=== PATIENT | female | born 1995 | race Caucasian/White ===

== ENCOUNTER 2022-10-03 05:51 | Emergency (ER) | payer OTHER, SELFPAY ==
[2022-10-03 05:58] VITALS: BMI 19.3
[2022-10-03 06:10] VITALS: BP 127/91; PULSE 81; RESP 17; TEMP 36.4; O2SAT 93
--- NOTE | 2022-10-03 06:25 | PC.NURSE ---
Patient is under polysubstance/etoh influence, ambulates with two assist at this time, labs pending, med rec completed/pending provider's approval, patient is waiting provider at this time, will continue to monitor.
[2022-10-03 06:50] LABS: COVID-19 Test Negative (Negative); IDNOW Serial# BCCEAD1C
--- NOTE | 2022-10-03 07:59 | PC.NURSE ---
PT SLEEPING. AWOKEN FOR LAB DRAW.
[2022-10-03 08:12] LABS: MANUAL DIFF FLAG NO
--- NOTE | 2022-10-03 08:16 | ED.PSYCH ---
HPI - Psych General Chief Complaint: ETOH/Substance Use <CHRIS Tamayo - Last Filed: 10/03/22 17:55> Stated Complaint: crisis <CHRIS Tamayo - Last Filed: 10/03/22 17:55> Time Seen by Provider: 10/03/22 07:58 <CHRIS Tamayo - Last Filed: 10/03/22 17:55> Source: patient and EMS <CHRIS Tamayo - Last Filed: 10/03/22 17:55> Mode of arrival: EMS <CHRIS Tamayo - Last Filed: 10/03/22 17:55> Limitations: no limitations <CHRIS Tamayo - Last Filed: 10/03/22 17:55> History of Present Illness HPI Narrative: 27 yo female presents to the ER for evaluation of alcohol intoxication and suicidal thoughts. She reports drinking 1 galloon of vodka per day. She states she has been having troubles with her fiance. She just got [facility] and did not stay sober. She denies any illicit drug use besides marijuana. When asked about suidical thoughts she states she would never kill herself. She admits to drinking heavily and having withdrawal seizures in the past. She reports nausea and feeling like she is already starting to go through alcohol withdrawal. She reports her last drink was 11 hours ago. <CHRIS Tamayo - Last Filed: 10/03/22 17:55> MD complaint: suicidal ideation, feels depressed and alcohol abuse <CHRIS Tamayo - Last Filed: 10/03/22 17:55> Onset (ago): unknown <CHRIS Tamayo - Last Filed: 10/03/22 17:55> History of same: Yes <CHRIS Tamayo - Last Filed: 10/03/22 17:55> Relieving factors: none <CHRIS Tamayo - Last Filed: 10/03/22 17:55> Exacerbating factors: none <CHRIS Tamayo Last Filed: 10/03/22 17:55> Context: recent alcohol abuse and significant life stressor <CHRIS Tamayo Last Filed: 10/03/22 17:55> Associated psychiatric symptoms: depression <CHRIS Tamayo - Last Filed: 10/03/22 17:55> Associated symptoms: headache, nausea, vomiting and insomnia <CHRIS Tamayo - Last Filed: 10/03/22 17:55> Treatments prior to arrival: placed on mental health hold <CHRIS Tamayo - Last Filed: 10/03/22 17:55> Related Data Home Medications: Home Medications Medication Instructions Recorded Confirmed albuterol sulfate 90 mcg/actuation 2 puff inhalation Q4H PRN wheezing 10/03/22 10/03/22 aerosol inhaler (Ventolin HFA) chlordiazepoxide HCl 25 mg capsule 4 cap PO BEDTIME PRN Alcohol 10/03/22 10/03/22 Withdrawal hydroxyzine pamoate 50 mg capsule 1 - 2 cap PO BEDTIME PRN insomnia 10/03/22 10/03/22 levothyroxine 100 mcg capsule 1 cap PO DAILY 10/03/22 10/03/22 (Tirosint) <CHRIS Tamayo - Last Filed: 10/03/22 17:55> Allergies/Adverse Reactions: Allergies Allergy/AdvReac Type Severity Reaction Status Date / Time cat dander Allergy Severe Rash Verified 10/03/22 06:05 dog dander [dogs] Allergy Severe Rash Verified 10/03/22 06:04 tree nut AdvReac Severe Anaphylaxis Verified 10/03/22 06:29 shellfish derived AdvReac Rash Verified 10/03/22 06:03 <CHRIS Tamayo - Last Filed: 10/03/22 17:55> Review of Systems Review of Systems: Yes all other systems are reviewed and are negative <CHRIS Tamayo - Last Filed: 10/03/22 17:55> PMFSH Past Medical History Medical History: Medical History (Updated 10/03/22 @ 17:55 by CHRIS Tamayo) Asthma Hypothyroidism <CHRIS Tamayo - Last Filed: 10/03/22 17:55> Social History Social History: Social History Alcohol intake: current Alcohol intake frequency: 3 or more drinks per day Alcohol type: hard liquor Smoked in Last 30 Days: No Use of substances other than those prescribed or required for medical reasons: Yes Substance Use Type: Marijuana Substance Use Frequency: Chronic Longstanding Last Used Substance: Just Prior to Admission Advance Directives: No Advance Directives Information Provided: No Patient : No <CHRIS Tamayo - Last Filed: 10/03/22 17:55> Physical Exam Vital Signs: Vital Signs: Last Vital Signs Temp 97.2 F 10/03/22 21:05 Pulse 110 H 10/03/22 21:05 Resp 20 10/03/22 21:05 BP 143/103 H 10/03/22 21:05 Pulse Ox 97 10/03/22 21:05 O2 Del Method 10/03/22 21:05 BMI result Body Mass Index 19.3 <CHRIS Tamayo - Last Filed: 10/03/22 17:55> Vital Signs: Last Vital Signs Temp 97.2 F 10/03/22 21:05 Pulse 110 H 10/03/22 21:05 Resp 20 10/03/22 21:05 BP 143/103 H 10/03/22 21:05 Pulse Ox 97 10/03/22 21:05 O2 Del Method 10/03/22 21:05 BMI result Body Mass Index 19.3 <CHRIS Solano - Last Filed: 10/03/22 23:12> Appearance: Disheveled, poorly kempt, awoken to voice Eyes: Pupils equal, round and reactive to light. ENT: Pharynx normal. Neck: Normal inspection. Neck supple. CVS: Normal heart rate and rhythm. Pulses normal. Respiratory: No respiratory distress. Breath sounds normal. Abdomen: Soft and nontender. +BS x4 Skin: Skin warm and dry. Normal skin color. Normal skin turgor. No rashes. Extremities: No lower extremity edema. Neuro: Oriented X 3. No motor deficit. No sensory deficit. CN II-XII, slurred speech at times. Depressed mood. Restless intermittently. poor insight and judgment. <CHRIS Tamayo - Last Filed: 10/03/22 17:55> Course Course Course Narrative: 27-year-old female with history of ETOH abuse/dependence who drinks 1 gallon of vodka per day, history of withdrawal seizures in the past who recently got out of [facility] presents to the ER intoxicated and reporting SI. Will get ETOH level, lab work up for medical clearance and have her seen by CARE team once clinically sober. <CHRIS Tamayo - Last Filed: 10/03/22 17:55> Reevaluation(s) Reevaluation #1: ETOH 390. patient denying SI - I was probably just wasted and talking smack. I would never kill myself. She reports severe withdrawal from alcohol - actively vomiting, p.rmartínez Smart ordered. Will monitor CIWA scores. It is going to take her several hours 2 days to start going through withdrawal given her extremely high alcohol level. CIWA 9 this afternoon <CHRIS Tamayo - Last Filed: 10/03/22 17:55> Reevaluation #2: Nurse reporting CIWA score of 39 at 17:00 today. Patient's scores very subjective with moderately severe for several subjective complaints. Will treat with Librium and clonidine and reassess. An if no improvement or worsening symptoms will require admission to the hospital for alcohol withdrawal. <CHRIS Tamayo - Last Filed: 10/03/22 17:55> Reevaluation #3: [id number]-- CIWA =0 now. patient has 7 days worth of Librium room waiting for her at the pharmacy for pickling grad[facility]. Patient was evaluated by CARE team and denies SI at this time, reports issues are secondary to ETOH and would like detox. Patient would like to be discharged home to try to get into detox tomorrow outpatient <CHRIS Solano - Last Filed: 10/03/22 23:12> Medications Administered Generic Name Dose Route Start Last Admin Trade Name Freq PRN Reason Stop Dose Admin Levothyroxine Sodium 100 mcg 10/03/22 10:45 10/03/22 11:11 Levothyroxine Sodium 100 Mcg Tablet PO 100 mcg DAILY FAROOQ Administration Discontinued Medications Generic Name Dose Route Start Last Admin Trade Name Freq PRN Reason Stop Dose Admin Chlordiazepoxide HCl 75 mg 10/03/22 17:39 10/03/22 17:47 Chlordiazepoxide Hcl 25 Mg Capsule PO 10/03/22 17:40 75 mg ONCE ONE Administration Chlordiazepoxide HCl 25 mg 10/03/22 23:04 10/03/22 23:07 Chlordiazepoxide Hcl 25 Mg Capsule PO 10/03/22 23:05 25 mg ONCE ONE Administration Clonidine HCl 0.1 mg 10/03/22 17:52 10/03/22 18:20 Clonidine Hcl 0.1 Mg Tablet PO 10/03/22 17:53 0.1 mg ONCE ONE Administration Protocol Lorazepam 0.5 mg 10/03/22 08:40 10/03/22 08:50 Lorazepam 0.5 Mg Tablet PO 10/03/22 08:41 0.5 mg ONCE ONE Administration Ondansetron HCl 4 mg 10/03/22 08:40 10/03/22 08:50 Ondansetron Odt 4 Mg Tab.Rapdis TRANSLINGU 10/03/22 08:41 4 mg ONCE ONE Administration Ondansetron HCl 4 mg 10/03/22 14:44 10/03/22 17:48 Ondansetron Odt 4 Mg Tab.Rapdis TRANSLINGU 10/03/22 14:45 4 mg ONCE ONE Administration <CHRIS Tamayo - Last Filed: 10/03/22 17:55> Medications Administered Generic Name Dose Route Start Last Admin Trade Name Freq PRN Reason Stop Dose Admin Levothyroxine Sodium 100 mcg 10/03/22 10:45 10/03/22 11:11 Levothyroxine Sodium 100 Mcg Tablet PO 100 mcg DAILY FAROOQ Administration Discontinued Medications Generic Name Dose Route Start Last Admin Trade Name Freq PRN Reason Stop Dose Admin Chlordiazepoxide HCl 75 mg 10/03/22 17:39 10/03/22 17:47 Chlordiazepoxide Hcl 25 Mg Capsule PO 10/03/22 17:40 75 mg ONCE ONE Administration Chlordiazepoxide HCl 25 mg 10/03/22 23:04 10/03/22 23:07 Chlordiazepoxide Hcl 25 Mg Capsule PO 10/03/22 23:05 25 mg ONCE ONE Administration Clonidine HCl 0.1 mg 10/03/22 17:52 10/03/22 18:20 Clonidine Hcl 0.1 Mg Tablet PO 10/03/22 17:53 0.1 mg ONCE ONE Administration Protocol Lorazepam 0.5 mg 10/03/22 08:40 10/03/22 08:50 Lorazepam 0.5 Mg Tablet PO 10/03/22 08:41 0.5 mg ONCE ONE Administration Ondansetron HCl 4 mg 10/03/22 08:40 10/03/22 08:50 Ondansetron Odt 4 Mg Tab.Rapdis TRANSLINGU 10/03/22 08:41 4 mg ONCE ONE Administration Ondansetron HCl 4 mg 10/03/22 14:44 10/03/22 17:48 Ondansetron Odt 4 Mg Tab.Antonellamilly KEITHINGU 10/03/22 14:45 4 mg ONCE ONE Administration <CHRIS Solano - Last Filed: 10/03/22 23:12> Medical Decision Making Lab Data Result Diagrams: 10/03/22 08:03 10/03/22 08:03 <CHRIS Tamayo - Last Filed: 10/03/22 17:55> Labs: Lab Results 10/03/22 10/03/22 10/03/22 Range/Units 06:21 08:03 08:03 WBC 5.6 (4.8-10.8) X10*3/uL RBC 4.81 (4.20-5.50) X10*6/uL Hgb 14.2 (12.0-16.0) g/dl Hct 43.1 (37.0-47.0) % MCV 89.6 (80.0-98.0) fL MCH 29.5 (27.0-33.0) pg MCHC 32.9 (31.0-35.0) g/dl RDW 14.3 (11.0-16.0) % Plt Count 251 (160-400) X10*3/uL MPV 9.9 (9.4-12.3) fL Immature Gran % (Auto) 0.2 (0.0-0.4) % Neut % (Auto) 44.4 L (45-73) % Lymph % (Auto) 44.2 H (20-40) % Divide % (Auto) 5.2 (2-11) % Eos % (Auto) 4.7 H (0-4) % Baso % (Auto) 1.3 (0-2) % Lymph # (Auto) 2.5 (1.2-4.9) X10*3/uL Divide # (Auto) 0.3 (0.1-1.2) X10*3/uL Eos # (Auto) 0.3 (0.0-0.4) X10*3/uL Baso # (Auto) 0.1 (0.0-0.2) X10*3/uL Abs Immat Gran (auto) 0.01 (0.00-0.03) X10*3/uL Absolute Neuts (auto) 2.5 (2.0-8.3) x10*3/uL Absolute Nucleated RBC 0.000 (0.0-0.012) X10*3/uL Nucleated RBC % (auto) 0.0 (0.0-0.2) /100WBC Sodium (135-145) mmol/L Potassium (3.3-5.1) mmol/L Chloride (96-108) mmol/L Carbon Dioxide (22-29) mmol/L Anion Gap (12-20) BUN (9-16) mg/dL Creatinine (0.5-1.4) mg/dL Estim Creat Clear Calc Estimated GFR Random Glucose (60-115) mg/dL Calcium (8.4-10.2) mg/dL Magnesium 2.0 (1.6-2.6) mg/dL Total Bilirubin (0.0-1.0) mg/dL AST (5-31) U/L ALT (0-31) U/L Alkaline Phosphatase (39-117) U/L Total Protein (6.5-8.0) g/dL Albumin (3.5-5.0) g/dL Urine Color Urine Appearance Urine pH (5.0-9.0) Ur Specific [place] (1.005-1.025) Urine Protein (Neg-Trace) mg/dL Urine Glucose (UA) (Negative) mg/dL Urine Ketones (Negative) mg/dL Urine Blood (Negative) Urine Nitrite (Negative) Ur Leukocyte Esterase (Negative) Urine Test (NEGATIVE) Urine Opiates Screen (Not Detect) Urine Fentanyl Screen (Not Detect) Ur Barbiturates Screen (Not Detect) Ur Phencyclidine Scrn (Not Detect) Ur Amphetamines Screen (Not Detect) U Benzodiazepines Scrn (Not Detect) Urine Cocaine Screen (Not Detect) U Marijuana (THC) Screen (Not Detect) Ethyl Alcohol 390 H* mg/dL COVID-19 (WOODY) Negative (Negative) COVID-19 Clin Com See Note 10/03/22 10/03/22 10/03/22 Range/Units 08:03 14:06 14:06 WBC (4.8-10.8) X10*3/uL RBC (4.20-5.50) X10*6/uL Hgb (12.0-16.0) g/dl Hct (37.0-47.0) % MCV (80.0-98.0) fL MCH (27.0-33.0) pg MCHC (31.0-35.0) g/dl RDW (11.0-16.0) % Plt Count (160-400) X10*3/uL MPV (9.4-12.3) fL Immature Gran % (Auto) (0.0-0.4) % Neut % (Auto) (45-73) % Lymph % (Auto) (20-40) % Divide % (Auto) (2-11) % Eos % (Auto) (0-4) % Baso % (Auto) (0-2) % Lymph # (Auto) (1.2-4.9) X10*3/uL Divide # (Auto) (0.1-1.2) X10*3/uL Eos # (Auto) (0.0-0.4) X10*3/uL Baso # (Auto) (0.0-0.2) X10*3/uL Abs Immat Gran (auto) (0.00-0.03) X10*3/uL Absolute Neuts (auto) (2.0-8.3) x10*3/uL Absolute Nucleated RBC (0.0-0.012) X10*3/uL Nucleated RBC % (auto) (0.0-0.2) /100WBC Sodium 144 (135-145) mmol/L Potassium 3.8 (3.3-5.1) mmol/L Chloride 107 (96-108) mmol/L Carbon Dioxide 24 (22-29) mmol/L Anion Gap 17 (12-20) BUN 15 (9-16) mg/dL Creatinine 0.69 (0.5-1.4) mg/dL Estim Creat Clear Calc 107.0 Estimated GFR > 60 Random Glucose 86 (60-115) mg/dL Calcium 9.0 (8.4-10.2) mg/dL Magnesium (1.6-2.6) mg/dL Total Bilirubin 0.5 (0.0-1.0) mg/dL AST 50 H (5-31) U/L ALT 25 (0-31) U/L Alkaline Phosphatase 104 (39-117) U/L Total Protein 7.6 (6.5-8.0) g/dL Albumin 4.3 (3.5-5.0) g/dL Urine Color Urine Appearance Urine pH (5.0-9.0) Ur Specific [place] (1.005-1.025) Urine Protein (Neg-Trace) mg/dL Urine Glucose (UA) (Negative) mg/dL Urine Ketones (Negative) mg/dL Urine Blood (Negative) Urine Nitrite (Negative) Ur Leukocyte Esterase (Negative) Urine Test NEGATIVE (NEGATIVE) Urine Opiates Screen Not Detected (Not Detect) Urine Fentanyl Screen Not Detected (Not Detect) Ur Barbiturates Screen POSITIVE H (Not Detect) Ur Phencyclidine Scrn Not Detected (Not Detect) Ur Amphetamines Screen Not Detected (Not Detect) U Benzodiazepines Scrn Not Detected (Not Detect) Urine Cocaine Screen Not Detected (Not Detect) U Marijuana (THC) Screen Not Detected (Not Detect) Ethyl Alcohol mg/dL COVID-19 (WOODY) (Negative) COVID-19 Clin Com 10/03/22 Range/Units 14:06 WBC (4.8-10.8) X10*3/uL RBC (4.20-5.50) X10*6/uL Hgb (12.0-16.0) g/dl Hct (37.0-47.0) % MCV (80.0-98.0) fL MCH (27.0-33.0) pg MCHC (31.0-35.0) g/dl RDW (11.0-16.0) % Plt Count (160-400) X10*3/uL MPV (9.4-12.3) fL Immature Gran % (Auto) (0.0-0.4) % Neut % (Auto) (45-73) % Lymph % (Auto) (20-40) % Divide % (Auto) (2-11) % Eos % (Auto) (0-4) % Baso % (Auto) (0-2) % Lymph # (Auto) (1.2-4.9) X10*3/uL Divide # (Auto) (0.1-1.2) X10*3/uL Eos # (Auto) (0.0-0.4) X10*3/uL Baso # (Auto) (0.0-0.2) X10*3/uL Abs Immat Gran (auto) (0.00-0.03) X10*3/uL Absolute Neuts (auto) (2.0-8.3) x10*3/uL Absolute Nucleated RBC (0.0-0.012) X10*3/uL Nucleated RBC % (auto) (0.0-0.2) /100WBC Sodium (135-145) mmol/L Potassium (3.3-5.1) mmol/L Chloride (96-108) mmol/L Carbon Dioxide (22-29) mmol/L Anion Gap (12-20) BUN (9-16) mg/dL Creatinine (0.5-1.4) mg/dL Estim Creat Clear Calc Estimated GFR Random Glucose (60-115) mg/dL Calcium (8.4-10.2) mg/dL Magnesium (1.6-2.6) mg/dL Total Bilirubin (0.0-1.0) mg/dL AST (5-31) U/L ALT (0-31) U/L Alkaline Phosphatase (39-117) U/L Total Protein (6.5-8.0) g/dL Albumin (3.5-5.0) g/dL Urine Color Yellow Urine Appearance Clear Urine pH 6.0 (5.0-9.0) Ur Specific [place] 1.010 (1.005-1.025) Urine Protein Trace (Neg-Trace) mg/dL Urine Glucose (UA) Negative (Negative) mg/dL Urine Ketones Negative (Negative) mg/dL Urine Blood Negative (Negative) Urine Nitrite Negative (Negative) Ur Leukocyte Esterase Negative (Negative) Urine Test (NEGATIVE) Urine Opiates Screen (Not Detect) Urine Fentanyl Screen (Not Detect) Ur Barbiturates Screen (Not Detect) Ur Phencyclidine Scrn (Not Detect) Ur Amphetamines Screen (Not Detect) U Benzodiazepines Scrn (Not Detect) Urine Cocaine Screen (Not Detect) U Marijuana (THC) Screen (Not Detect) Ethyl Alcohol mg/dL COVID-19 (WOODY) (Negative) COVID-19 Clin Com <CHRIS Tamayo - Last Filed: 10/03/22 17:55> Lab Results 10/03/22 10/03/22 10/03/22 Range/Units 06:21 08:03 08:03 WBC 5.6 (4.8-10.8) X10*3/uL RBC 4.81 (4.20-5.50) X10*6/uL Hgb 14.2 (12.0-16.0) g/dl Hct 43.1 (37.0-47.0) % MCV 89.6 (80.0-98.0) fL MCH 29.5 (27.0-33.0) pg MCHC 32.9 (31.0-35.0) g/dl RDW 14.3 (11.0-16.0) % Plt Count 251 (160-400) X10*3/uL MPV 9.9 (9.4-12.3) fL Immature Gran % (Auto) 0.2 (0.0-0.4) % Neut % (Auto) 44.4 L (45-73) % Lymph % (Auto) 44.2 H (20-40) % Divide % (Auto) 5.2 (2-11) % Eos % (Auto) 4.7 H (0-4) % Baso % (Auto) 1.3 (0-2) % Lymph # (Auto) 2.5 (1.2-4.9) X10*3/uL Divide # (Auto) 0.3 (0.1-1.2) X10*3/uL Eos # (Auto) 0.3 (0.0-0.4) X10*3/uL Baso # (Auto) 0.1 (0.0-0.2) X10*3/uL Abs Immat Gran (auto) 0.01 (0.00-0.03) X10*3/uL Absolute Neuts (auto) 2.5 (2.0-8.3) x10*3/uL Absolute Nucleated RBC 0.000 (0.0-0.012) X10*3/uL Nucleated RBC % (auto) 0.0 (0.0-0.2) /100WBC Sodium (135-145) mmol/L Potassium (3.3-5.1) mmol/L Chloride (96-108) mmol/L Carbon Dioxide (22-29) mmol/L Anion Gap (12-20) BUN (9-16) mg/dL Creatinine (0.5-1.4) mg/dL Estim Creat Clear Calc Estimated GFR Random Glucose (60-115) mg/dL Calcium (8.4-10.2) mg/dL Magnesium 2.0 (1.6-2.6) mg/dL Total Bilirubin (0.0-1.0) mg/dL AST (5-31) U/L ALT (0-31) U/L Alkaline Phosphatase (39-117) U/L Total Protein (6.5-8.0) g/dL Albumin (3.5-5.0) g/dL Urine Color Urine Appearance Urine pH (5.0-9.0) Ur Specific [place] (1.005-1.025) Urine Protein (Neg-Trace) mg/dL Urine Glucose (UA) (Negative) mg/dL Urine Ketones (Negative) mg/dL Urine Blood (Negative) Urine Nitrite (Negative) Ur Leukocyte Esterase (Negative) Urine Test (NEGATIVE) Urine Opiates Screen (Not Detect) Urine Fentanyl Screen (Not Detect) Ur Barbiturates Screen (Not Detect) Ur Phencyclidine Scrn (Not Detect) Ur Amphetamines Screen (Not Detect) U Benzodiazepines Scrn (Not Detect) Urine Cocaine Screen (Not Detect) U Marijuana (THC) Screen (Not Detect) Ethyl Alcohol 390 H* mg/dL COVID-19 (WOODY) Negative (Negative) COVID-19 Clin Com See Note 10/03/22 10/03/22 10/03/22 Range/Units 08:03 14:06 14:06 WBC (4.8-10.8) X10*3/uL RBC (4.20-5.50) X10*6/uL Hgb (12.0-16.0) g/dl Hct (37.0-47.0) % MCV (80.0-98.0) fL MCH (27.0-33.0) pg MCHC (31.0-35.0) g/dl RDW (11.0-16.0) % Plt Count (160-400) X10*3/uL MPV (9.4-12.3) fL Immature Gran % (Auto) (0.0-0.4) % Neut % (Auto) (45-73) % Lymph % (Auto) (20-40) % Divide % (Auto) (2-11) % Eos % (Auto) (0-4) % Baso % (Auto) (0-2) % Lymph # (Auto) (1.2-4.9) X10*3/uL Divide # (Auto) (0.1-1.2) X10*3/uL Eos # (Auto) (0.0-0.4) X10*3/uL Baso # (Auto) (0.0-0.2) X10*3/uL Abs Immat Gran (auto) (0.00-0.03) X10*3/uL Absolute Neuts (auto) (2.0-8.3) x10*3/uL Absolute Nucleated RBC (0.0-0.012) X10*3/uL Nucleated RBC % (auto) (0.0-0.2) /100WBC Sodium 144 (135-145) mmol/L Potassium 3.8 (3.3-5.1) mmol/L Chloride 107 (96-108) mmol/L Carbon Dioxide 24 (22-29) mmol/L Anion Gap 17 (12-20) BUN 15 (9-16) mg/dL Creatinine 0.69 (0.5-1.4) mg/dL Estim Creat Clear Calc 107.0 Estimated GFR > 60 Random Glucose 86 (60-115) mg/dL Calcium 9.0 (8.4-10.2) mg/dL Magnesium (1.6-2.6) mg/dL Total Bilirubin 0.5 (0.0-1.0) mg/dL AST 50 H (5-31) U/L ALT 25 (0-31) U/L Alkaline Phosphatase 104 (39-117) U/L Total Protein 7.6 (6.5-8.0) g/dL Albumin 4.3 (3.5-5.0) g/dL Urine Color Urine Appearance Urine pH (5.0-9.0) Ur Specific [place] (1.005-1.025) Urine Protein (Neg-Trace) mg/dL Urine Glucose (UA) (Negative) mg/dL Urine Ketones (Negative) mg/dL Urine Blood (Negative) Urine Nitrite (Negative) Ur Leukocyte Esterase (Negative) Urine Test NEGATIVE (NEGATIVE) Urine Opiates Screen Not Detected (Not Detect) Urine Fentanyl Screen Not Detected (Not Detect) Ur Barbiturates Screen POSITIVE H (Not Detect) Ur Phencyclidine Scrn Not Detected (Not Detect) Ur Amphetamines Screen Not Detected (Not Detect) U Benzodiazepines Scrn Not Detected (Not Detect) Urine Cocaine Screen Not Detected (Not Detect) U Marijuana (THC) Screen Not Detected (Not Detect) Ethyl Alcohol mg/dL COVID-19 (WOODY) (Negative) COVID-19 Clin Com 10/03/22 Range/Units 14:06 WBC (4.8-10.8) X10*3/uL RBC (4.20-5.50) X10*6/uL Hgb (12.0-16.0) g/dl Hct (37.0-47.0) % MCV (80.0-98.0) fL MCH (27.0-33.0) pg MCHC (31.0-35.0) g/dl RDW (11.0-16.0) % Plt Count (160-400) X10*3/uL MPV (9.4-12.3) fL Immature Gran % (Auto) (0.0-0.4) % Neut % (Auto) (45-73) % Lymph % (Auto) (20-40) % Divide % (Auto) (2-11) % Eos % (Auto) (0-4) % Baso % (Auto) (0-2) % Lymph # (Auto) (1.2-4.9) X10*3/uL Divide # (Auto) (0.1-1.2) X10*3/uL Eos # (Auto) (0.0-0.4) X10*3/uL Baso # (Auto) (0.0-0.2) X10*3/uL Abs Immat Gran (auto) (0.00-0.03) X10*3/uL Absolute Neuts (auto) (2.0-8.3) x10*3/uL Absolute Nucleated RBC (0.0-0.012) X10*3/uL Nucleated RBC % (auto) (0.0-0.2) /100WBC Sodium (135-145) mmol/L Potassium (3.3-5.1) mmol/L Chloride (96-108) mmol/L Carbon Dioxide (22-29) mmol/L Anion Gap (12-20) BUN (9-16) mg/dL Creatinine (0.5-1.4) mg/dL Estim Creat Clear Calc Estimated GFR Random Glucose (60-115) mg/dL Calcium (8.4-10.2) mg/dL Magnesium (1.6-2.6) mg/dL Total Bilirubin (0.0-1.0) mg/dL AST (5-31) U/L ALT (0-31) U/L Alkaline Phosphatase (39-117) U/L Total Protein (6.5-8.0) g/dL Albumin (3.5-5.0) g/dL Urine Color Yellow Urine Appearance Clear Urine pH 6.0 (5.0-9.0) Ur Specific [place] 1.010 (1.005-1.025) Urine Protein Trace (Neg-Trace) mg/dL Urine Glucose (UA) Negative (Negative) mg/dL Urine Ketones Negative (Negative) mg/dL Urine Blood Negative (Negative) Urine Nitrite Negative (Negative) Ur Leukocyte Esterase Negative (Negative) Urine Test (NEGATIVE) Urine Opiates Screen (Not Detect) Urine Fentanyl Screen (Not Detect) Ur Barbiturates Screen (Not Detect) Ur Phencyclidine Scrn (Not Detect) Ur Amphetamines Screen (Not Detect) U Benzodiazepines Scrn (Not Detect) Urine Cocaine Screen (Not Detect) U Marijuana (THC) Screen (Not Detect) Ethyl Alcohol mg/dL COVID-19 (WOODY) (Negative) COVID-19 Clin Com <CHRIS Solano - Last Filed: 10/03/22 23:12> Discharge Plan Discharge Clinical Impression: Alcoholic intoxication <CHRIS Tamayo - Last Filed: 10/03/22 17:55> Patient Disposition: Still a Patient <CHRIS Tamayo - Last Filed: 10/03/22 17:55> Prescriptions: No Action hydroxyzine pamoate 50 mg capsule 1 - 2 cap PO BEDTIME PRN (Reason: insomnia) chlordiazepoxide HCl 25 mg capsule 4 cap PO BEDTIME PRN (Reason: Alcohol Withdrawal) albuterol sulfate [Ventolin HFA] 90 mcg/actuation HFA aerosol inhaler 2 puff INHALATION Q4H PRN (Reason: wheezing) levothyroxine [Tirosint] 100 mcg capsule 1 cap PO DAILY <CHRIS Tamayo - Last Filed: 10/03/22 17:55> Interventions: [place]-Suicide Risk Severity Scale Last Done: 10/03/22 08:33 <CHRIS Tamayo - Last Filed: 10/03/22 17:55>
[2022-10-03 08:17] LABS: Basophils Absolute Auto 0.1 X10*3/uL (0.0-0.2); Basophils Percent Auto 1.3 % (0-2); Eosinophils Absolute Auto 0.3 X10*3/uL (0.0-0.4); Eosinophils Percent Auto 4.7 % (0-4); Hematocrit 43.1 % (37.0-47.0); Hemoglobin 14.2 g/dl (12.0-16.0); Imm Gran Abs Auto 0.01 X10*3/uL (0.00-0.03); Imm Gran Pct Auto 0.2 % (0.0-0.4); Lymphocytes Absolute Auto 2.5 X10*3/uL (1.2-4.9); Lymphocytes Percent Auto 44.2 % (20-40); Mean Corpuscular HGB Conc 32.9 g/dl (31.0-35.0); Mean Corpuscular Hemoglobin 29.5 pg (27.0-33.0); Mean Corpuscular Volume 89.6 fL (80.0-98.0); Mean Platelet Volume 9.9 fL (9.4-12.3); Monocytes Absolute Auto 0.3 X10*3/uL (0.1-1.2); Monocytes Percent Auto 5.2 % (2-11); Neutrophils Absolute Auto 2.5 x10*3/uL (2.0-8.3); Neutrophils Percent Auto 44.4 % (45-73); Platelet Count 251 X10*3/uL (160-400); Red Blood Count 4.81 X10*6/uL (4.20-5.50); Red Cell Distribution Width 14.3 % (11.0-16.0); White Blood Count 5.6 X10*3/uL (4.8-10.8)
[2022-10-03 08:20] VITALS: BP 137/95; PULSE 88; RESP 15; TEMP 36.3; O2SAT 97
[2022-10-03 08:34] LABS: Alanine Aminotransferase 25 U/L (0-31); Albumin Level 4.3 g/dL (3.5-5.0); Alkaline Phosphatase 104 U/L (39-117); Anion Gap 17 (12-20); Aspartate Amino Transferase 50 U/L (5-31); Bilirubin Total 0.5 mg/dL (0.0-1.0); Blood Urea Nitrogen 15 mg/dL (9-16); Carbon Dioxide 24 mmol/L (22-29); Chloride 107 mmol/L (96-108); Estimated Glomerular Filt Rate > 60; Glucose Random 86 mg/dL (60-115); Potassium 3.8 mmol/L (3.3-5.1); Sodium 144 mmol/L (135-145); Total Protein 7.6 g/dL (6.5-8.0)
--- NOTE | 2022-10-03 08:36 | PC.NURSE ---
EXAM BY CHRIS BANDA
[2022-10-03 08:39] LABS: Ethanol 390 mg/dL
[2022-10-03] MEDS: LORazepam 0.5 MG TABLET PO (08:50)
[2022-10-03] MEDS: Ondansetron ODT 4 MG TAB.RAPDIS TRANSLINGU ×2 (08:50→17:48)
--- NOTE | 2022-10-03 09:06 | PC.NURSE ---
PT STATED WITHDRAWING FROM ETOH. LEVEL 390. WENT INTO ROOM TO MEDICATE PT. SNORING.
[2022-10-03] MEDS: Levothyroxine Sodium 100 MCG TABLET PO (11:11)
--- NOTE | 2022-10-03 12:45 | PC.NURSE ---
PT AWAKE, DRINKING WATER. GIVEN MEDS. AWAITING CARE TEAM ARIASAL
[2022-10-03 14:23] LABS: Appearance Urine Clear; Color Urine Yellow; Glucose Urine UA Negative (Negative); Leukocyte Esterase Urine Negative (Negative); Nitrite Urine Negative (Negative); Urine Blood Negative (Negative); Urine Ketones Negative (Negative); Urine Protein Trace mg/dL (Neg-Trace)
[2022-10-03 14:24] LABS: UPreg QC Valid YES; Urine Pregnancy NEGATIVE (NEGATIVE)
[2022-10-03 14:32] LABS: Amphetamine Screen Urine Not Detected (Not Detect); Barbiturates, Urine POSITIVE (Not Detect); Benzodiazepines Screen Urine Not Detected (Not Detect); Cannabinoid Screen Urine Not Detected (Not Detect); Cocaine Screen Urine Not Detected (Not Detect); Fentanyl, urine Not Detected (Not Detect); Opiate Screen Urine Not Detected (Not Detect); Phencyclidine Screen Urine Not Detected (Not Detect)
[2022-10-03 14:38] VITALS: BP 155/107; PULSE 110; RESP 18; TEMP 36.6; O2SAT 97
--- NOTE | 2022-10-03 16:50 | PC.NURSE ---
Addendum entered by Melly Luther RN 10/03/22 16:51: Gave her turkey sandwich and pitcher of ice water. Original Note: Patient requesting food and drink.
--- NOTE | 2022-10-03 17:20 | PC.NURSE ---
Patient requesting something because she is starting to detox. Diandra PEREZ notified. adelso [email or web address]. Awaiting for orders.
[2022-10-03] MEDS: chlordiazePOXIDE HCl 25 MG CAPSULE 75 MG PO (17:47)
[2022-10-03] MEDS: cloNIDine HCL 0.1 MG TABLET PO (18:20)
[2022-10-03 18:29] VITALS: BP 140/104; PULSE 104; RESP 20; TEMP 36.9; O2SAT 96
[2022-10-03 21:05] VITALS: BP 143/103; PULSE 110; RESP 20; TEMP 36.2; O2SAT 97
[2022-10-03] MEDS: chlordiazePOXIDE HCl 25 MG CAPSULE PO (23:07)
== END 2022-10-03 23:22 | disposition home or self-care (01) ==
PROVIDERS: Emergency Provider Emergency Medicine Emergency Medical Services
DX: F10.129 Alcohol abuse with intoxication, unspecified (principal); Y90.8 Blood alcohol level of 240 mg/100 ml or more; Z20.822 Contact with and (suspected) exposure to COVID-19; Z20.828 Contact with and (suspected) exposure to other viral communicable diseases; Z79.899 Other long term (current) drug therapy
CPT/HCPCS: 36415; 80053; 80307; 81003; 81025; 82077; 83735; 85025; 87635; 99284; 99285; S9485

== ENCOUNTER 2023-03-12 16:20 | Emergency (ER) | payer OTHER, SELFPAY ==
[2023-03-12 16:34] VITALS: BP 140/98; BP 145/107; PULSE 123; PULSE 130; RESP 16; O2SAT 96; O2SAT 98; BMI 20.2
[2023-03-12 16:40] VITALS: BP 154/107; PULSE 123; RESP 16; O2SAT 96
[2023-03-12 17:03] VITALS: BP 143/105; PULSE 116; RESP 23; TEMP 36.9; O2SAT 97
--- NOTE | 2023-03-12 17:05 | ED_ITS ---
HPI - General Adult General Chief complaint: Dizziness Stated complaint: dizziness / not feeling well / ETOH Time Seen by Provider: 03/12/23 16:30 Source: patient, RN notes reviewed and old records reviewed Mode of arrival: ambulatory Limitations: no limitations History of Present Illness HPI narrative: 27-year-old female with past medical history significant for eczema, thyroid cancer status post radiation therapy presents for evaluation of ?dizziness and sweating. ? Patient reports that she follows with endocrinology and she had blood work done a few days ago and she was told ?my cortisol levels are too high. ? She states that she was told by her profile mill operator tape control earlier today that she may have tumors on her adrenals. She reports that she began sweating profusely and complaining of dizziness To having ?a few drinks of alcohol with the last drink being around 1:00 p.m.. ? Patient also states that she is on chronic prednisone for the last 6 months due to her eczema Denies any pain currently No other complaints or concerns at this time. Related Data Home Medications Medication Instructions Recorded Confirmed albuterol sulfate 90 mcg/actuation 2 puff inhalation Q4H PRN wheezing 10/03/22 10/03/22 aerosol inhaler (Ventolin HFA) chlordiazepoxide HCl 25 mg capsule 4 cap PO BEDTIME PRN Alcohol 10/03/22 10/03/22 Withdrawal hydroxyzine pamoate 50 mg capsule 1 - 2 cap PO BEDTIME PRN insomnia 10/03/22 10/03/22 levothyroxine 100 mcg capsule 1 cap PO DAILY 10/03/22 10/03/22 (Tirosint) Allergies Allergy/AdvReac Type Severity Reaction Status Date / Time cat dander Allergy Severe Rash Verified 10/03/22 06:05 dog dander [dogs] Allergy Severe Rash Verified 10/03/22 06:04 tree nut AdvReac Severe Anaphylaxis Verified 10/03/22 06:29 shellfish derived AdvReac Rash Verified 10/03/22 06:03 Review of Systems Constitutional: Constitutional: Reports as per HPI, Denies chills, Denies f atigue and Denies fever(s) Cardiovascular: Cardiovascular: Denies chest pain, Reports diaphoresis and Denies dyspnea Respiratory: Respiratory: Denies cough and Denies dyspnea Gastrointestinal: Gastrointestinal: Denies abdominal pain, Denies constipation and Denies vomiting Genitourinary: Genitourinary: Denies dysuria Integumentary/Breasts: Skin/Breast: Reports rash Neurologic: Denies focal weakness Endocrine: Endocrine: Denies fatigue [facility] Past Medical History Medical History (Updated 03/12/23 @ 18:13 by Maicol Billings) Asthma Hypothyroidism Social History Social History Alcohol intake: current Alcohol intake frequency: a few times a week Alcohol type: hard liquor Smoked in Last 30 Days: Yes Use of substances other than those prescribed or required for medical reasons: No Substance Use Type: Marijuana Advance Directives: No Advance Directives Information Provided: No Physical Exam ED Vital Signs: Vital Signs - 24 hr 03/12/23 16:34 03/12/23 16:40 03/12/23 17:03 Temperature 98.4 F Pulse Rate 123 H 123 H 116 H Respiratory Rate 16 16 23 H Blood Pressure 145/107 H 154/107 H 143/105 H Pulse Oximetry 96 96 97 Oxygen Delivery Method Room Air Room Air Room Air BMI result Body Mass Index 20.2 Const General: healthy appearing, comfortable, no acute distress, alert and awake Nutritional Appearance: well nourished Orientation/consciousness: patient oriented x3 HENMT Head: Yes normocephalic and Yes atraumatic Eyes Eyelids: Yes eyelids normal Conjunctivae: conjunctivae normal Sclerae: sclerae normal Corneas: corneas normal Pupils: Equal, round and reactive pupils present EOM: EOMs intact bilaterally Neck Neck: Yes full ROM Resp Effort & Inspection: normal respiratory effort, able to speak in complete sentences and not labored Cardio Rhythm: regular rhythm GI Inspection: No distended Palpation (GI): Soft to palpation, not firm, nontender, no guarding and not rigid Auscultation: normoactive bowel sounds Skin General skin exam: no rashes or lesions noted and elasticity normal Neuro General: patient oriented x3 Cranial nerves: Yes Equal, round and reactive pupils present and Yes Bilaterally intact EOM present Cognition (Neuro): normal cognition Extrem Other: Moving all extremities well without any obvious deformities Course Reevaluation(s) Reevaluation #1: Patient requesting discharge at this time. She is still intoxicated based on her BAL. However she has a sober ride home. Patient requested her IV be removed and reports that she is feeling better. She will be discharged this time to follow-up with her profile mill operator tape control Time: 18:12 Medications Administered Discontinued Medications Generic Name Dose Route Start Last Admin Trade Name Micah PRN Reason Stop Dose Admin Sodium Chloride 1,000 mls @ 999 mls/hr 03/12/23 17:00 03/12/23 17:31 Ns IV 03/12/23 18:00 999 mls/hr .Q1H1M FAROOQ Administration Medical Decision Making Medical Decision Making [facility] Narrative: 27-year-old female with past medical history significant for hypothyroidism, eczema presents for evaluation of dizziness and excessive sweating. She reports that she was recently diagnosed with ?adrenal problems. ? She arrives tachycardic to about 120 and her this is likely related to anxiety. We will check a TSH/T4 level as she is being treated for hypothyroidism due to her previous radiation therapy to her thyroid. Will check other basic labs as well as a random cortisol level. The patient does follow closely with endocrinology and has no significant abdominal pain, nausea vomiting, so we will defer any imaging at this time. Differential Diagnosis Anxiety Alcohol abuse Acute alcohol intoxication Dehydration Whatcom's disease Hyperthyroidism Brinda syndrome Pheochromocytoma Lab Data [facility] Lab Attestation statement: I reviewed the patient's lab results. (There is no leukocytosis or left shift. Patient's alcohol level noted to be elevated to 341 which is likely contributing to her tachycardia and dizziness. Patient's CO2 is slightly low at 21 which may be related to the patient's anxiety and hyperventilating.) 03/12/23 17:15 03/12/23 17:15 Labs: Lab Results 03/12/23 03/12/23 03/12/23 Range/Units 17:15 17:15 17:15 WBC 7.7 (4.8-10.8) X10*3/uL RBC 4.75 (4.20-5.50) X10*6/uL Hgb 14.4 (12.0-16.0) g/dl Hct 42.4 (37.0-47.0) % MCV 89.3 (80.0-98.0) fL MCH 30.3 (27.0-33.0) pg MCHC 34.0 (31.0-35.0) g/dl RDW 13.6 (11.0-16.0) % Plt Count 328 D (160-400) X10*3/uL MPV 10.2 (9.4-12.3) fL Immature Gran % (Auto) 0.3 (0.0-0.4) % Neut % (Auto) 62.1 (45-73) % Lymph % (Auto) 29.1 (20-40) % Noble % (Auto) 3.8 (2-11) % Eos % (Auto) 3.9 (0-4) % Baso % (Auto) 0.8 (0-2) % Lymph # (Auto) 2.3 (1.2-4.9) X10*3/uL Noble # (Auto) 0.3 (0.1-1.2) X10*3/uL Eos # (Auto) 0.3 (0.0-0.4) X10*3/uL Baso # (Auto) 0.1 (0.0-0.2) X10*3/uL Abs Immat Gran (auto) 0.02 (0.00-0.03) X10*3/uL Absolute Neuts (auto) 4.8 (2.0-8.3) x10*3/uL Absolute Nucleated RBC 0.000 (0.0-0.012) X10*3/uL Nucleated RBC % (auto) 0.0 (0.0-0.2) /100WBC Sodium 144 (135-145) mmol/L Potassium 3.7 (3.3-5.1) mmol/L Chloride 111 H (96-108) mmol/L Carbon Dioxide 21 L (22-29) mmol/L Anion Gap 16 (12-20) BUN 21 H (9-16) mg/dL Creatinine 0.73 (0.5-1.4) mg/dL Estim Creat Clear Calc 115.1 Estimated GFR > 60 Random Glucose 113 (60-115) mg/dL Calcium 9.5 (8.4-10.2) mg/dL Total Bilirubin 0.3 (0.0-1.0) mg/dL AST 27 (5-31) U/L ALT 18 (0-31) U/L Alkaline Phosphatase 81 (39-117) U/L Total Protein 7.4 (6.5-8.0) g/dL Albumin 4.4 (3.5-5.0) g/dL Lipase 59 (8-78) U/L TSH (0.32-4.0) uIU/mL Beta HCG, Quant < 2 mIU/mL Random Cortisol ug/dL Ethyl Alcohol mg/dL 03/12/23 03/12/23 03/12/23 Range/Units 17:15 17:15 17:15 WBC (4.8-10.8) X10*3/uL RBC (4.20-5.50) X10*6/uL Hgb (12.0-16.0) g/dl Hct (37.0-47.0) % MCV (80.0-98.0) fL MCH (27.0-33.0) pg MCHC (31.0-35.0) g/dl RDW (11.0-16.0) % Plt Count (160-400) X10*3/uL MPV (9.4-12.3) fL Immature Gran % (Auto) (0.0-0.4) % Neut % (Auto) (45-73) % Lymph % (Auto) (20-40) % Noble % (Auto) (2-11) % Eos % (Auto) (0-4) % Baso % (Auto) (0-2) % Lymph # (Auto) (1.2-4.9) X10*3/uL Noble # (Auto) (0.1-1.2) X10*3/uL Eos # (Auto) (0.0-0.4) X10*3/uL Baso # (Auto) (0.0-0.2) X10*3/uL Abs Immat Gran (auto) (0.00-0.03) X10*3/uL Absolute Neuts (auto) (2.0-8.3) x10*3/uL Absolute Nucleated RBC (0.0-0.012) X10*3/uL Nucleated RBC % (auto) (0.0-0.2) /100WBC Sodium (135-145) mmol/L Potassium (3.3-5.1) mmol/L Chloride (96-108) mmol/L Carbon Dioxide (22-29) mmol/L Anion Gap (12-20) BUN (9-16) mg/dL Creatinine (0.5-1.4) mg/dL Estim Creat Clear Calc Estimated GFR Random Glucose (60-115) mg/dL Calcium (8.4-10.2) mg/dL Total Bilirubin (0.0-1.0) mg/dL AST (5-31) U/L ALT (0-31) U/L Alkaline Phosphatase (39-117) U/L Total Protein (6.5-8.0) g/dL Albumin (3.5-5.0) g/dL Lipase (8-78) U/L TSH 1.29 (0.32-4.0) uIU/mL Beta HCG, Quant mIU/mL Random Cortisol 17.0 ug/dL Ethyl Alcohol 341 H* mg/dL Tests considered The following testing was considered but not selected: CT scan of the abdomen pelvis to evaluate the adrenal gland Discharge Plan Discharge Clinical Impression: Dizziness, Acute alcohol intoxication Patient Disposition: Home, Self-Care Instructions: Dizziness (ED) Additional Instructions: Your blood work today was reassuring. This included your TSH level and your random cortisol level. Avoid excessive consumption of alcohol Follow-up with your primary doctor as well as your profile mill operator tape control Prescriptions: No Action hydroxyzine pamoate 50 mg capsule 1 - 2 cap PO BEDTIME PRN (Reason: insomnia) chlordiazepoxide HCl 25 mg capsule 4 cap PO BEDTIME PRN (Reason: Alcohol Withdrawal) albuterol sulfate [Ventolin HFA] 90 mcg/actuation HFA aerosol inhaler 2 puff INHALATION Q4H PRN (Reason: wheezing) levothyroxine [Tirosint] 100 mcg capsule 1 cap PO DAILY
--- NOTE | 2023-03-12 17:10 | PC.NURSE ---
pt a&o x4, pleasant, anxious, but cooperative. pt comes from the bar, slightly intoxicated and tearful stating she had 3 drinks before she started feeling dizzy and sweaty. pt changed over to hospital attire, placed on the monitor due to tachy HR, labs drawn, IV placed, medicated per mar currently resting quietly on stretcher, rr even/unlabored. wctm
[2023-03-12 17:21] LABS: MANUAL DIFF FLAG NO
[2023-03-12 17:23] LABS: Basophils Absolute Auto 0.1 X10*3/uL (0.0-0.2); Basophils Percent Auto 0.8 % (0-2); Eosinophils Absolute Auto 0.3 X10*3/uL (0.0-0.4); Eosinophils Percent Auto 3.9 % (0-4); Hematocrit 42.4 % (37.0-47.0); Hemoglobin 14.4 g/dl (12.0-16.0); Imm Gran Abs Auto 0.02 X10*3/uL (0.00-0.03); Imm Gran Pct Auto 0.3 % (0.0-0.4); Lymphocytes Absolute Auto 2.3 X10*3/uL (1.2-4.9); Lymphocytes Percent Auto 29.1 % (20-40); Mean Corpuscular Hemoglobin 30.3 pg (27.0-33.0); Mean Corpuscular Volume 89.3 fL (80.0-98.0); Mean Platelet Volume 10.2 fL (9.4-12.3); Monocytes Absolute Auto 0.3 X10*3/uL (0.1-1.2); Monocytes Percent Auto 3.8 % (2-11); Neutrophils Absolute Auto 4.8 x10*3/uL (2.0-8.3); Neutrophils Percent Auto 62.1 % (45-73); Platelet Count 328 X10*3/uL (160-400); Red Blood Count 4.75 X10*6/uL (4.20-5.50); Red Cell Distribution Width 13.6 % (11.0-16.0); White Blood Count 7.7 X10*3/uL (4.8-10.8)
[2023-03-12] MEDS: 0.9 % Sodium Chloride 1,000 ML 999 ML IV (17:31)
[2023-03-12 17:37] LABS: Ethanol 341 mg/dL
[2023-03-12 17:40] LABS: Alanine Aminotransferase 18 U/L (0-31); Albumin Level 4.4 g/dL (3.5-5.0); Alkaline Phosphatase 81 U/L (39-117); Anion Gap 16 (12-20); Aspartate Amino Transferase 27 U/L (5-31); Bilirubin Total 0.3 mg/dL (0.0-1.0); Blood Urea Nitrogen 21 mg/dL (9-16); Calcium 9.5 mg/dL (8.4-10.2); Carbon Dioxide 21 mmol/L (22-29); Chloride 111 mmol/L (96-108); Creatinine Clr Calc Pharmacy 115.1; Estimated Glomerular Filt Rate > 60; Glucose Random 113 mg/dL (60-115); Lipase 59 U/L (8-78); Potassium 3.7 mmol/L (3.3-5.1); Sodium 144 mmol/L (135-145); Total Protein 7.4 g/dL (6.5-8.0)
[2023-03-12 17:57] LABS: HCG Quantitative < 2 mIU/mL
[2023-03-12 18:02] LABS: TSH reflex Free T4 1.29 uIU/mL (0.32-4.0)
--- NOTE | 2023-03-12 18:12 | PC.NURSE ---
pt demanding IV to be taken out, stating I'm ready to go home, I'm feeling much better now . provider notified, IV taken out. pt ambulated to bathroom to give UA.
== END 2023-03-12 18:23 | disposition home or self-care (01) ==
PROVIDERS: Physician Assistant; Emergency Provider Student in an Organized Health Care Education/Training Program
DX: R42 Dizziness and giddiness (principal); F10.229 Alcohol dependence with intoxication, unspecified; E03.9 Hypothyroidism, unspecified; Y90.8 Blood alcohol level of 240 mg/100 ml or more; F17.200 Nicotine dependence, unspecified, uncomplicated; Z79.899 Other long term (current) drug therapy
CPT/HCPCS: 36415; 80053; 80307; 82533; 83690; 84443; 84702; 85025; 99283; 99284

== ENCOUNTER 2023-12-15 13:22 | Outpatient (REF) | payer OTHER, SELFPAY | END 2023-12-15 13:23 | disposition home or self-care (01) | LOC: HO.SH 13:22 | PROVIDERS: PCP Internal Medicine; Visit Provider Internal Medicine | DX: Z01.118 Encounter for examination of ears and hearing with other abnormal findings (principal); H90.3 Sensorineural hearing loss, bilateral | CPT/HCPCS: 92557; 92567 ==